=== PATIENT | male | born 1955 | race Caucasian/White ===

== ENCOUNTER → 2017-01-26 | Day surgery (SDC) | payer OTHER ==
[~2017-01-26] MED LIST: AMLODIPINE BESY10 MG PO; AMLODIPINE BESYL5 MG PO; ASPIRIN81 M1 PO; CATAPRES0.1 MG PO; CLONIDINE HCL0.1 MG PO; DOXYCYCLINE HYC20 MG PO; EMBEDA ER 20-01 EACH PO; FISH OIL 1,2001 CAP PO; FLAXSEED OIL1000 M1 PO; FLOMAX0.4 M1 PO; LEVOTHYROXINE50 MCG PO; LO-DOSE ASPIRIN81 M1 PO; LYRICA25 MG PO; METOPROLOL SUCC50 MG PO; MULTI-VITAMIN1 EAC1 PO; NIACIN500 M2 PO; OMEPRAZOLE40 M1 PO; TIROSINT50 MCG PO; TIZANIDINE HCL4 M1 PO; TOPROL XL 50 MG50 M1 PO; VOLTAREN75 MG PO; VYTORIN 10-40 M1 TAB PO; VYTORIN 10-401 EACH PO
--- NOTE | ~2017-01-26 | OR ---
Unit #: [id number] #: [id number] Patient: LILO NICOLE [id number] [address] [address] [id number] MR#: [id number] NAME: LILO NICOLE ROOM: Date of Procedure: 01/26/2017 Admission Date: 01/26/2017 Surgeon: Art Silva M.D. : 1955 Attending Physician: Art Silva M.D. Primary Care Physician: Tonya Lee A.P.R.N. OPERATIVE REPORT PREOPERATIVE DIAGNOSES 1. Dysphagia. 2. Rectal bleeding. POSTOPERATIVE DIAGNOSES 1. Dysphagia. 2. Rectal bleeding. PROCEDURES PERFORMED 1. Esophagogastroduodenoscopy. 2. Biopsy of antrum for Helicobacter pylori testing. 3. Colonoscopy to cecum. ANESTHESIA Monitored anesthesia care. FINDINGS The patient was found to have on upper endoscopy, mild gastritis. On colonoscopy, the patient was found to have sigmoid diverticulosis as well as internal and external hemorrhoids. SPECIMENS Sent to Pathology. COMPLICATIONS None apparent. CONDITION The patient tolerated the procedure well. INDICATIONS FOR PROCEDURE The patient is a 61-year-old white male, who presents at this time with an intermittent dysphagia of solids greater than liquids. In addition, he has had some intermittent bright red blood per rectum involving the stool and the water. He presents at this time for evaluation by upper and lower endoscopy. DESCRIPTION OF PROCEDURE After obtaining informed consent, the patient was brought to the endoscopy suite and after adequate monitored anesthesia care, had the endoscope placed through the mouth into the upper esophagus under direct vision. It was advanced to the second and third portion of the duodenum without difficulty with lumen always in view. The duodenum was normal as was Unit #: [id number] #: [id number] Patient: LILO NICOLE duodenal bulb. The pylorus opened normally. There was some mild distal gastritis present and a biopsy was obtained for Helicobacter pylori testing. On retroflexing back to the GE junction, the patient was found to have a lax GE junction, but no other abnormalities found in the proximal third, middle third, or incisura. On pulling back above the GE junction, there was no stenosis, stricture, or neoplasm seen. There was no significant esophagitis. The remaining portion of the esophagus was within normal limits. Laryngeal structures were grossly normal as viewed from above. At this point in time, the colonoscope was placed through the anus and slowly advanced to the level of the cecum without difficulty with lumen always in view. The cecum was normal as was the ileocecal valve. The ascending colon was normal as was the hepatic flexure, transverse colon, splenic flexure, and the descending colon. The sigmoid colon had a moderate amount of diverticulosis present. No other abnormalities were seen. The rectosigmoid and rectum were all within normal limits. On retroflexing in the rectum to the anorectal junction, revealed some moderate internal hemorrhoids. On pulling back through the anal canal, there was some moderate prolapsing internal and external hemorrhoids. The scope was removed without difficulty. The patient tolerated the procedure well and went from the endoscopy suite to recovery area in stable condition. RECOMMENDATIONS Gastroesophageal reflux sheet. Diverticular sheet given. High-fiber diet, lots of liquids, tucks or wipes p.r.n. Call Sunday for pathology report. Follow up as needed. Dictated by... Zachery Garcia/brad TD: 01/26/2017 12:59 JOB #: [id number] CC: Don Almaguer M.D. [facility] OPERATIVE REPORT Page 1 of 1 X Art Silva MD X PROCEDURE OPERATIVE NOTE
== END | disposition home or self-care (01) ==
LOC: COPS 05:37
DX: K57.30 Diverticulosis of large intestine without perforation or abscess without bleeding (principal); K29.70 Gastritis, unspecified, without bleeding; K64.4 Residual hemorrhoidal skin tags; K64.8 Other hemorrhoids; E03.9 Hypothyroidism, unspecified; K21.9 Gastro-esophageal reflux disease without esophagitis; I10 Essential (primary) hypertension; G47.30 Sleep apnea, unspecified; G89.29 Other chronic pain; M54.9 Dorsalgia, unspecified; N40.0 Benign prostatic hyperplasia without lower urinary tract symptoms; M19.90 Unspecified osteoarthritis, unspecified site; F17.210 Nicotine dependence, cigarettes, uncomplicated; Z86.010 Personal history of colon polyps; Z79.899 Other long term (current) drug therapy; Z98.890 Other specified postprocedural states
CPT/HCPCS: 87077